=== PATIENT | female | born 1950 | race Caucasian/White ===

== ENCOUNTER → 2023-08-05 | Outpatient (CLI) | payer MEDICARE ==
--- NOTE | 2023-08-05 16:43 | US ---
EXAMINATION TYPE: US venous doppler duplex LE RT DATE OF EXAM: 08/05/2023 4:29 PM COMPARISON: NONE CLINICAL INDICATION: Female, 72 years old with history of M25.561 PAIN RIGHT KNEE I08.9 RA VALVE; P atient states right knee pain SIDE PERFORMED: Right TECHNIQUE: The lower extremity deep venous system is examined utilizing real time linear array sonog jose with graded compression, doppler sonography and color-flow sonography. VESSELS IMAGED: Common Femoral Vein Deep Femoral Vein Greater Saphenous Vein * Femoral Vein Popliteal Vein Small Saphenous Vein * Proximal Calf Veins (* superficial vessels) FINDINGS: Grayscale, color doppler, spectral doppler imaging performed of the deep veins of the right lower extremity. There is normal flow, compressibility, vascular waveforms. IMPRESSION: Negative for DVT, right lower extremity.
== END | disposition home or self-care (01) ==
LOC: RADUSWWP 16:07
PROVIDERS: ATTEND Orthopaedic Surgery
DX: I80.9 Phlebitis and thrombophlebitis of unspecified site (principal); M17.11 Unilateral primary osteoarthritis, right knee; I08.9 Rheumatic multiple valve disease, unspecified; M25.561 Pain in right knee; M62.551 Muscle wasting and atrophy, not elsewhere classified, right thigh; R53.1 Weakness